=== PATIENT | male | born 1990 | race African-American/Black ===

== ENCOUNTER 2020-12-12 20:41 | Emergency (ER) | payer MEDICAID ==
[~2020-12-12] VITALS: Ht 157.5 cm; Wt 70.0 kg
[2020-12-12] MEDS ORDERED: IBUPROFEN 400MG TABLET PO ONE (22:45)
[2020-12-12] MEDS ORDERED: ACETAMINOPHEN 325MG TABLET PO ONE (22:45)
[2020-12-12] MEDS ORDERED: ACET-2708 MT (23:48)
[2020-12-12] MEDS ORDERED: GUAI237L83 MT (23:48)
[2020-12-13 00:19] VITALS: BP 125/78
== END 2020-12-13 00:25 | disposition home or self-care (01) ==
LOC: ER 20:41
DX: J06.9 Acute upper respiratory infection, unspecified (principal)
CPT/HCPCS: 71045; 99283